=== PATIENT | female | born 1970 | race Caucasian/White ===

== ENCOUNTER 2020-05-15 09:05 | Emergency (ER) | payer OTHER ==
[~2020-05-15] VITALS: Ht 162.6 cm; Wt 63.6 kg
[~2020-05-15 09:05] MED LIST: IBUP-2070 PO
[2020-05-15 09:34] VITALS: BP 105/56
== END 2020-05-15 09:34 | disposition home or self-care (01) ==
LOC: EMS 09:11
DX: L03.811 Cellulitis of head [any part, except face] (principal); L20.9 Atopic dermatitis, unspecified
CPT/HCPCS: 99283; Z7502

== ENCOUNTER 2020-05-17 07:27 | Emergency (ER) | payer OTHER ==
[~2020-05-17] VITALS: Ht 162.6 cm; Wt 63.6 kg
[2020-05-17] MEDS ORDERED: CEPH-582 PO (07:38)
[2020-05-17] MEDS ORDERED: DIPH50CA35 PO (07:38)
[2020-05-17] MEDS ORDERED: MULT-1203 PO (07:38)
[2020-05-17] MEDS ORDERED: TRAZ-252 PO (07:38)
[2020-05-17] MEDS ORDERED: SODIUM CHLORIDE 0.9% 100 ML ONE (08:57)
[2020-05-17] MEDS ORDERED: IOVERSOL 320 MG/ML 100 ML VIAL ONE (08:57)
[2020-05-17] MEDS ORDERED: IOVERSOL 350 MG/ML 100 ML VIAL ONE (09:00)
[2020-05-17 09:21] LABS: BASOPHILS % (AUTO) 0.4 % (0.0-2.0); EOSINOPHILS % (AUTO) 0.5 % (1.0-6.0); HEMATOCRIT 40.1 % (36-46); HEMOGLOBIN 13.9 g/dL (12.0-16.0); LYMPHOCYTES # (AUTO) 0.9 K/uL (1.0-4.8); LYMPHOCYTES % (AUTO) 13.6 % (22.0-44.0); MEAN CORPUSCULAR HEMOGLOBIN 33.8 pg (26.0-34.0); MEAN CORPUSCULAR HGB CONC 34.6 G/dL (31.0-37.0); MEAN CORPUSCULAR VOLUME 98 fL (80-100); MONOCYTES # (AUTO) 0.9 K/uL (0.1-1.0); MONOCYTES % (AUTO) 13.7 % (2.0-9.0); NEUTROPHILS # (AUTO) 4.7 K/uL (1.8-7.7); NEUTROPHILS % (AUTO) 71.8 % (40.0-70.0); PLATELET COUNT (AUTO) 296 K/uL (150-450); RED BLOOD CELL COUNT(AUTO) 4.11 MIL/uL (4.00-5.20); RED CELL DISTRIBUTION WIDTH 14.2 % (11.5-14.5)
[2020-05-17 09:31] LABS: CALCIUM, TOTAL 9.1 mg/dL (8.8-10.5); CREATININE 1.12 mg/dL (0.60-1.30); POTASSIUM 3.3 mmol/L (3.5-5.1)
[2020-05-17 09:41] LABS: LACTIC ACID 1.4 mmol/L (0.4-2.0)
[2020-05-17] MEDS ORDERED: POTASSIUM CHLORIDE 20 MEQ ER TABLET PO ONE (09:45)
[2020-05-17 12:24] VITALS: BP 111/72
[2020-05-17] MEDS ORDERED: DiphenhydrAMINE HCL 25 MG CAPSULE PO ONE (12:30)
[2020-05-17] MEDS ORDERED: CIPROFLOXACIN HCL 250 MG TABLET PO ONE (12:45)
[2020-05-17] MEDS ORDERED: DOXYCYCLINE HYCLATE 100 MG TABLET PO ONE (12:45)
== END 2020-05-17 12:56 | disposition home or self-care (01) ==
LOC: EMS 07:32
DX: H60.92 Unspecified otitis externa, left ear (principal); E87.6 Hypokalemia; L30.9 Dermatitis, unspecified; H57.89 Other specified disorders of eye and adnexa; F19.90 Other psychoactive substance use, unspecified, uncomplicated
CPT/HCPCS: 36415; 70487; 80048; 83605; 85025; 87040; 99285; J7050; Q9967

== ENCOUNTER 2020-11-29 14:36 | Emergency (ER) | payer OTHER ==
[~2020-11-29] VITALS: Ht 162.6 cm; Wt 68.2 kg
[~2020-11-29 14:36] MED LIST changes: +CEPH-582 PO; +DIPH50CA35 PO; -IBUP-2070 PO; +MULT-1203 PO; +TRAZ-252 PO
[2020-11-29] MEDS ORDERED: PERTUSS(ACELL),DIPH,TET VAC/PF 0.5 ML VIAL IM ONE (17:00)
[2020-11-29] MEDS ORDERED: CIPROFLOXACIN HCL 250 MG TABLET PO ONE (17:00)
[2020-11-29 17:40] VITALS: BP 138/87
[2020-11-29] MEDS ORDERED: TraMADol HCL 50 MG TABLET PO ONE (17:45)
== END 2020-11-29 17:43 | disposition home or self-care (01) ==
LOC: EMS 14:43
DX: S91.332A Puncture wound without foreign body, left foot, initial encounter (principal); W45.0XXA Nail entering through skin, initial encounter; Y93.89 Activity, other specified; Y92.89 Other specified places as the place of occurrence of the external cause; Y99.8 Other external cause status; F15.90 Other stimulant use, unspecified, uncomplicated; Z79.899 Other long term (current) drug therapy
CPT/HCPCS: 90471; 90715; 99283

== ENCOUNTER 2021-04-22 18:32 | Emergency (ER) | payer OTHER | END 2021-04-22 22:21 | disposition left against medical advice (07) | LOC: EMS 18:32 | DX: R51.9 Headache, unspecified (principal); Z53.21 Procedure and treatment not carried out due to patient leaving prior to being seen by health care provider ==

== ENCOUNTER 2021-05-31 14:49 | Emergency (ER) | payer OTHER ==
[~2021-05-31] VITALS: Ht 165.1 cm; Wt 63.6 kg
[2021-05-31 15:33] LABS: COVID AG,FIA SOURCE NASAL SWAB
[2021-05-31 15:48] VITALS: BP 122/99
== END 2021-05-31 16:01 | disposition home or self-care (01) ==
LOC: EMS 14:53
DX: R06.00 Dyspnea, unspecified (principal); R53.83 Other fatigue; R53.81 Other malaise; L65.9 Nonscarring hair loss, unspecified; F19.90 Other psychoactive substance use, unspecified, uncomplicated; Z20.822 Contact with and (suspected) exposure to COVID-19
CPT/HCPCS: 99283

== ENCOUNTER 2021-12-08 10:07 | Emergency (ER) | payer OTHER | END 2021-12-08 10:20 | disposition left against medical advice (07) | LOC: EMS 10:07 | DX: J11.1 Influenza due to unidentified influenza virus with other respiratory manifestations (principal); Z53.21 Procedure and treatment not carried out due to patient leaving prior to being seen by health care provider ==

== ENCOUNTER 2022-01-08 20:05 | Emergency (ER) | payer OTHER ==
[~2022-01-08] VITALS: Ht 162.6 cm; Wt 63.6 kg
[2022-01-08 20:10] VITALS: BP 119/88
[2022-01-08 20:45] LABS: BASOPHILS % (AUTO) 0.8 % (0.0-2.0); EOSINOPHILS % (AUTO) 1.3 % (1.0-6.0); HEMATOCRIT 40.5 % (36-46); HEMOGLOBIN 13.9 g/dL (12.0-16.0); LYMPHOCYTES # (AUTO) 1.1 K/uL (1.0-4.8); LYMPHOCYTES % (AUTO) 25.8 % (22.0-44.0); MEAN CORPUSCULAR HEMOGLOBIN 33.3 pg (26.0-34.0); MEAN CORPUSCULAR HGB CONC 34.3 G/dL (31.0-37.0); MEAN CORPUSCULAR VOLUME 97 fL (80-100); MONOCYTES # (AUTO) 0.7 K/uL (0.1-1.0); MONOCYTES % (AUTO) 16.5 % (2.0-9.0); NEUTROPHILS # (AUTO) 2.3 K/uL (1.8-7.7); NEUTROPHILS % (AUTO) 55.6 % (40.0-70.0); PLATELET COUNT (AUTO) 184 K/uL (150-450); RED BLOOD CELL COUNT(AUTO) 4.18 MIL/uL (4.00-5.20); RED CELL DISTRIBUTION WIDTH 13.1 % (11.5-14.5)
[2022-01-08 20:55] LABS: ANION GAP 9 mmol/L (8-16); CALCIUM, TOTAL 8.4 mg/dL (8.8-10.5); CARBON DIOXIDE 28 mmol/L (22-29); CHLORIDE 103 mmol/L (98-107); CREATININE 0.77 mg/dL (0.60-1.30); GLOMERULAR FILTR. RATE CALC > 60 mL/min (>60); GLUCOSE,RANDOM 138 mg/dL (70-110); POTASSIUM 3.3 mmol/L (3.5-5.1); SODIUM SERUM 140 mmol/L (136-145); UREA NITROGEN, BLOOD 15 mg/dL (7-18)
[2022-01-08 21:00] LABS: ALANINE AMINOTRANSFERASE 51 U/L (12-78); ALBUMIN 3.5 g/dL (3.4-5.0); ALKALINE PHOSPHATASE 86 U/L (46-116); ASPARTATE AMINOTRANSFERASE 66 U/L (15-37); BILIRUBIN,TOTAL 0.3 mg/dL (0.1-1.0); TOTAL PROTEIN, SERUM 8.4 g/dL (6.4-8.2)
== END 2022-01-08 22:21 | disposition home or self-care (01) ==
LOC: EMS 20:08
DX: F10.129 Alcohol abuse with intoxication, unspecified (principal); F32.9 Major depressive disorder, single episode, unspecified; E78.00 Pure hypercholesterolemia, unspecified; F19.90 Other psychoactive substance use, unspecified, uncomplicated; Y90.8 Blood alcohol level of 240 mg/100 ml or more
CPT/HCPCS: 36415; 80053; 85025; 99283; G0480

== ENCOUNTER 2022-10-08 02:27 | Emergency (ER) | payer OTHER ==
[~2022-10-08] VITALS: Ht 167.6 cm; Wt 79.5 kg
[2022-10-08] MEDS ORDERED: ACETAMINOPHEN 325 MG TABLET PO ONE (03:00)
[2022-10-08] MEDS ORDERED: IBUPROFEN 600 MG TABLET PO ONE (03:00)
[2022-10-08] MEDS ORDERED: LIDOCAINE 1% 10 ML VIAL SQ ONE (03:30)
[2022-10-08] MEDS ORDERED: AMOX TR/POT CLAV 875 MG/125 MG TABLET PO ONE (03:45)
[2022-10-08 04:12] VITALS: BP 139/75
[2022-10-08] MEDS ORDERED: AMOX1TAB16 PO (04:16)
== END 2022-10-08 04:36 | disposition home or self-care (01) ==
LOC: EMS 02:28
DX: S01.511A Laceration without foreign body of lip, initial encounter (principal); E78.5 Hyperlipidemia, unspecified; E78.00 Pure hypercholesterolemia, unspecified; F32.9 Major depressive disorder, single episode, unspecified; F41.9 Anxiety disorder, unspecified; F10.20 Alcohol dependence, uncomplicated; F15.10 Other stimulant abuse, uncomplicated; W54.0XXA Bitten by dog, initial encounter; Y93.89 Activity, other specified; Y92.89 Other specified places as the place of occurrence of the external cause; Y99.8 Other external cause status
CPT/HCPCS: 99284; 12013; J3490; 40650

== ENCOUNTER 2024-10-10 16:20 | Emergency (ER) | payer OTHER ==
[~2024-10-10] VITALS: Ht 162.6 cm; Wt 68.2 kg
[2024-10-10 16:45] VITALS: BP 116/69; PULSE 94; RESP 18; TEMP 98.2; O2SAT 99
== END 2024-10-10 18:39 | disposition left against medical advice (07) ==
LOC: EMS 16:20
DX: R07.89 Other chest pain (principal); M79.601 Pain in right arm; Z53.21 Procedure and treatment not carried out due to patient leaving prior to being seen by health care provider
CPT/HCPCS: 71046

== ENCOUNTER 2024-10-13 10:52 | Emergency (ER) | payer OTHER ==
[~2024-10-13] VITALS: Ht 154.9 cm; Wt 67.7 kg
[2024-10-13 10:55] VITALS: BP 103/65; PULSE 101; RESP 16; TEMP 98.3; O2SAT 98
[2024-10-13] MEDS ORDERED: anxiety med PO (10:56)
== END 2024-10-13 14:11 | disposition left against medical advice (07) ==
LOC: EMS 10:52
DX: R51.9 Headache, unspecified (principal); M25.511 Pain in right shoulder; R07.9 Chest pain, unspecified; Z53.21 Procedure and treatment not carried out due to patient leaving prior to being seen by health care provider